=== PATIENT | male | born 1930 | race African-American/Black ===

== ENCOUNTER 2019-06-11 04:45 | Emergency (ER) | payer OTHER, BC ==
[~2019-06-11] VITALS: Ht 185.4 cm; Wt 88.9 kg
[~2019-06-11 04:45] MED LIST: ASPIRIN325 PO; CARDIZEM CD360 MG PO; GLIPIZIDE XL5 MG PO; HYDROCHLOROTH12.5 MG PO; LEVAQUIN 250 M250 MG PO; LIPITOR20 MG PO; TOPROL XL100 MG PO
[2019-06-11 05:57] VITALS: BP 188/84
== END 2019-06-11 05:58 | disposition home or self-care (01) ==
LOC: ER 04:45
DX: R41.0 Disorientation, unspecified (principal); I10 Essential (primary) hypertension

== ENCOUNTER 2020-03-11 23:22 | Inpatient (IN) | payer OTHER, BC ==
[~2020-03-11] VITALS: Ht 185.4 cm; Wt 87.0 kg
[~2020-03-11 23:22] MED LIST changes: +HYDROCHLOROTH12.5 M1 PO; -HYDROCHLOROTH12.5 MG PO
[2020-03-11 23:23] VITALS: BP 162/78
[2020-03-11] MEDS ORDERED: DESYREL150 MG PO (23:43)
[2020-03-11] MEDS ORDERED: COZAAR 25 MG TA25 M1 PO (23:44)
[2020-03-11] MEDS ORDERED: LATANOPROST 0.2.5 ML EA. EYE (23:45)
[2020-03-12 00:06] LABS: ABSOLUTE NEUTROPHILS 10.1 thou/uL (1.4-8.2); BASOPHILS 0.5 % (0.0-2.0); EOSINOPHILS 0.1 % (0.0-3.0); HEMATOCRIT 40.3 % (42.0-52.0); HEMOGLOBIN 12.5 gm/dL (14.0-18.0); LYMPHOCYTES 6.5 % (24.0-44.0); MCHC 31.1 g/dL (28.0-37.0); MCV 77.3 fL (80.0-100.0); MONOCYTES 6.3 % (1.0-8.0); PLATELET COUNT 286 thou/uL (150-400); POLYS 86.6 % (36.0-66.0); RBC 5.21 mil/uL (4.50-6.00); RDW 16.6 % (10.5-14.5); WBC 11.7 thou/uL (4.0-11.0)
[2020-03-12 00:10] LABS: ANION GAP 9 mmol/L (7-16); BUN 27 mg/dL (7-18); CALCIUM 9.1 mg/dL (8.5-10.1); CHLORIDE 102 mmol/L (98-107); CO2 31 mmol/L (21-32); CREATININE 2.1 mg/dL (0.7-1.3); GLUCOSE 235 mg/dL (74-106); POTASSIUM 3.5 mmol/L (3.5-5.1); SODIUM 142 mmol/L (136-145)
[2020-03-12 00:22] LABS: ALBUMIN 2.6 g/dL (3.4-5.0); DIRECT BILIRUBIN 0.2 mg/dL (<0.1-0.2); MAGNESIUM 2.3 mg/dL (1.8-2.4); SGOT 30 U/L (15-37); SGPT 20 U/L (30-65); TOTAL BILIRUBIN 0.6 mg/dL (0.2-1.0); TOTAL PROTEIN 7.7 g/dL (6.4-8.2); TROPONIN-I <0.06 ng/mL (<0.06)
[2020-03-12 04:08] LABS: HEMATOCRIT 37.8 % (42.0-52.0); HEMOGLOBIN 11.8 gm/dL (14.0-18.0); MCH 24.1 pg (26.0-34.0); MCHC 31.2 g/dL (28.0-37.0); MCV 77.4 fL (80.0-100.0); RBC 4.89 mil/uL (4.50-6.00); RDW 16.4 % (10.5-14.5); WBC 12.6 thou/uL (4.0-11.0)
[2020-03-12 04:23] LABS: ANION GAP 8 mmol/L (7-16); BUN 27 mg/dL (7-18); CHLORIDE 105 mmol/L (98-107); CHOLESTEROL 103 mg/dL (<200); CO2 30 mmol/L (21-32); CREATININE 2.1 mg/dL (0.7-1.3); GLUCOSE 184 mg/dL (74-106); HDL CHOLESTEROL 55 mg/dL (>40); LDL CHOLESTEROL 36 mg/dL (<100); SODIUM 143 mmol/L (136-145); TC:HDL 1.9 Ratio (Not establshd); TRIGLYCERIDE 60 mg/dL (<150); VLDL 12 mg/dL (<40)
[2020-03-12 04:26] LABS: POTASSIUM 3.6 mmol/L (3.5-5.1); SERUM ASSESSMENT Clear
--- NOTE | 2020-03-12 04:47 | NUR ---
TALKED WITH SUNG PFEIFFER, I NOTIFIED HER THAT I WAS UNABLE TO STRAIGHT CATH PT FOR U/A. PER SUNG OK TO LET PT VOID IN URINAL WHEN HE HAS URGE TO GO AND COLLECT SPECIMEN THAT WAY.
--- NOTE | 2020-03-12 06:47 | NUR ---
TW DAUGHTER SONAL, EXPLAINED TO DAUGHTER POSITIVE COVID TEST AND NEED FOR ISOLATION.
--- NOTE | 2020-03-12 08:29 | EKG ---
[facility] [place] [address] [place] [address] ELECTROCARDIOGRAM REPORT Name: MITZI DIAZ Room #: 170-11 ADM IN M.R.#: [id number] Admission: 03/12/20 Attend Phys: Julio Iqbal MD Discharge: Date of : 34 Report #: [id number] THIS REPORT FOR: cc: [facility] - Clinic physician unknown [facility] - Clinic physician unknown Ray Garcia MD [facility] THIS REPORT FOR: //name// [facility] ED Test Date: 2020-03-11 Test Time: 23:32:58 Pat Name: MITZI DIAZ Department: Room: 170 Gender: M Retail Department Supervisor: branden : [id number] Requested By: Maite Stevens Order Number: [id number] MD: Ray Garcia Measurements Intervals [place] Rate: 119 P: -41 ID: [id number] QRS: 32 QRSD: 79 T: 195 QT: 296 QTc: 417 Interpretive Statements Sinus tachycardia Frequent and consecutive atrial premature complexes Nonspecific ST segment abnormality Baseline wander in lead(s) V5 Compared to ECG 09/30/2015 20:36:32 Atrial premature complex(es) now present Electronically Signed On 03-12-2020 8:28:49 DISTRIBUTION SUPERINTENDENT by Ray Garcia [email or web address] <ELECTRONICALLY SIGNED> By: Ray Garcia MD, FACC 03/12/20 0828 31 31 Ray Garcia MD, FAC /EPI
--- NOTE | 2020-03-12 12:57 | NUR ---
SHIRT OPERATOR SPOKE WITH DAUGHTER SONAL DIAZ ([phone]) AND GAVE PT POC UPDATE. SHE VERBALIZED UNDERSTANDING. SHE WAS ALSO MADE AWARE THAT PT IS NOW UNDER DR WATKINS'S SERVICE. NO FURTHER CONCERNS/QUESTIONS BY FAMILY AT THIS TIME.
[2020-03-12 14:54] VITALS: BP 138/62
[2020-03-12 15:42] VITALS: BP 171/71
[2020-03-12 21:55] VITALS: BP 157/63
[2020-03-13] VITALS (7 sets, daily range): BP systolic 123–186; BP diastolic 54–100
[2020-03-13 01:06] LABS: GLYCOHEMOGLOBIN (HGB A1C) 6.5 % (4.8-5.6)
[2020-03-13 02:49] LABS: HEMOGLOBIN 10.2 gm/dL (14.0-18.0); MCH 23.5 pg (26.0-34.0); MCHC 30.8 g/dL (28.0-37.0); MCV 76.3 fL (80.0-100.0); PLATELET COUNT 248 thou/uL (150-400); RBC 4.33 mil/uL (4.50-6.00); RDW 16.1 % (10.5-14.5); WBC 24.5 thou/uL (4.0-11.0)
[2020-03-13 02:57] LABS: CALCIUM 8.8 mg/dL (8.5-10.1); CREATININE 2.1 mg/dL (0.7-1.3); POTASSIUM 3.2 mmol/L (3.5-5.1); TOTAL BILIRUBIN 0.5 mg/dL (0.2-1.0); TOTAL PROTEIN 6.5 g/dL (6.4-8.2)
[2020-03-13 02:58] LABS: FIBRINOGEN 555.5 mg/dL (210-360); INR 1.1; PROTIME 11.4 Seconds (9.3-11.4)
[2020-03-13 03:55] LABS: ANISOCYTOSIS 1+; HYPOCHROMASIA 1+; MICROCYTES 1+
[2020-03-13 03:56] LABS: PLATELET ESTIMATE NORMAL
--- NOTE | 2020-03-13 06:44 | NUR ---
Pt. very confused and restless at beginning of shift.He pulled his IV out , disconnected heart monitor and placed it in the trash can. Pt. frequently reoriented. Daughter called to get an update on pt. Consent obtained for convalescent plasma ,given to pt and tolerated well. New IV inserted on right FA.Bed alarm on for safety. Maintaining O2 sat in the upper 90's on 2L/NC though when pt. takes off cannula his O2 sat drops in the mid 80's. BUSINESS RECORDS MANAGER cough , no shortness of breath. MRSA swab sent. Incontinent of bladder then offered to use urinal this am and voided. Urine specimen sent to lab. Pharmacist called last night to inform me that remdesivir needs to be approved by Dr. Orona and none available last night till shipment comes today.
--- NOTE | 2020-03-13 16:17 | NUR ---
Case opened to follow for dc planning. Chart reviewed and case discussed with the care team. Pt is covid positive and in enhanced ISO. Butcher Assistant spoke with the pt's dtr/dpoa Tsering who lives with him. The pt has dementia/alzh but is indep with gait and some adl's. He requires supervision with adl's, setup for meds,meals and bathing, and assist with IADl's. Tsering reports that she lives with him and is able to leave him alone from 2pm to 11pm during her work shift. He has a good routine at home. He has dme at home but refuses to use it (cane,walker, bath bench). They have a total of 7 steps into the house and he is able to stay on the main level. The 7 steps include a landing usp up and a handrail. His pcp is Dr. Jadiel Stern. He does not have any HH or SNF history. Pt's dtr is open to HH f/u at al and is planning to have her dtr (his gdtr) come and stay with him once he comes back home so he will not be alone. Pt's dtr notes that she is recovering from Covid as well and was at [facility] on 03/01. He started having symptoms 03/02/20 and has continued to have weakness and poor appetite. She can be reached on her cell or home number. Cm role introduced and support provided. The pt is currently on 2L NC oxygen and confused. He has recieved cov plasma today and has been sitting up in a chair. Will follow along for HH referral and possible home o2 at al. The pt's dtr has been touching base with the unit staff and spoke with the pt earlier this morning.
--- NOTE | 2020-03-13 17:25 | NUR ---
ASSUMED PATIENT CARE AT 0700. ALERT TO SELF. PATIENT STRATED PULLING EVERTHING OFF AT 1600. DR JUNE MORELAND. WILL GIVEN HALDOL AFTER DINER. PATIENT TOLERATED ON 2L/NC. SLOWLY TOWARDS POC GOALS.
[2020-03-13 21:29] LABS: URINE BILIRUBIN NEGATIVE (Negative); URINE BLOOD TRACE (Negative); URINE CLARITY CLOUDY; URINE COLOR YELLOW; URINE GLUCOSE-RANDOM* NEGATIVE (Negative); URINE KETONES NEGATIVE (Negative); URINE LEUKOCYTES NEGATIVE (Negative); URINE NITRITE NEGATIVE (Negative); URINE PROTEIN (DIPSTICK) 2+ (Negative); URINE SPECIFIC GRAVITY >= 1.030 (1.005-1.035); URINE UROBILINOGEN 0.2 E.U./dl (0.2-1.0)
[2020-03-13 21:44] LABS: CELLULAR CASTS 0-3 Few /LPF (None Seen); COARSE GRANULAR CASTS 0-3 Few /LPF (None Seen); CRYSTALS None Seen /LPF (None Seen); HYALINE CASTS 0-3 Few /LPF (None Seen); MUCUS 4-6 Moderate strn/LPF (None Seen); SQUAMOUS 0-3 Few /LPF (0-3); URINE RBC 0-2 Rare /HPF (0-2); URINE WBC 0-5 Rare /HPF (0-5)
--- NOTE | 2020-03-14 03:00 | NUR ---
Oxygen off at beginning of shift with O2 sat in the 80's. O2 titrated up to 5L to keep his O2 sat greater than 90%. He is wheezy and tachypneic. Dr. Stern notified and daughter Tsering updated.
[2020-03-14 04:53] VITALS: BP 124/60
[2020-03-14 04:55] LABS: HEMATOCRIT 35.2 % (42.0-52.0); MCH 23.9 pg (26.0-34.0); MCHC 31.2 g/dL (28.0-37.0); MCV 76.4 fL (80.0-100.0); RDW 16.9 % (10.5-14.5); WBC 31.1 thou/uL (4.0-11.0)
[2020-03-14 05:05] LABS: SGOT 98 U/L (15-37); SGPT 54 U/L (30-65)
[2020-03-14 05:12] LABS: PLATELET COUNT 330 thou/uL (150-400)
[2020-03-14 05:28] LABS: BE(vivo) -4.6 mmol/L (-2 to +3); HCO3 25.5 mmol/L (22.0-26.0); PO2 81.4 mmHg (80.0-100.0)
[2020-03-14 05:29] LABS: PCO2 75.1 mmHg (35.0-45.0); pH 7.148 (7.360-7.450)
[2020-03-14 05:37] LABS: CALCIUM 8.5 mg/dL (8.5-10.1); CREATININE 2.1 mg/dL (0.7-1.3); POTASSIUM 4.1 mmol/L (3.5-5.1)
[2020-03-14 06:42] LABS: ABSOLUTE NEUTROPHILS 30.8 thou/uL (1.4-8.2)
[2020-03-14 06:43] LABS: ANISOCYTOSIS 1+; BURR CELLS 1+; HYPOCHROMASIA 1+; MICROCYTES 1+; PLATELET ESTIMATE NORMAL; POIKILOCYTOSIS 1+; SCHISTOCYTES 1+
--- NOTE | 2020-03-14 07:23 | NUR ---
Around 0500 , pt. cleaned for incontinence. He didn't respond as much and lethargic,barely opened eyes and went right back to sleep. No respond to sternal rub , occasional movement of hands. DIRECTOR OF PARKS AND RECREATION activated. ABG results called to Dr. Stern. IV fluids dc'd . External catheter placed. Daughter Tsering updated this am.
[2020-03-14 07:43] VITALS: BP 144/73
[2020-03-14 08:24] LABS: BE(vivo) -2.9 mmol/L (-2 to +3); HCO3 25.7 mmol/L (22.0-26.0); pH 7.222 (7.360-7.450); sO2 92.1 % (92.0-98.0)
[2020-03-14 11:17] VITALS: BP 138/73
--- NOTE | 2020-03-14 14:56 | NUR ---
ASSUMED CARE OF PT AT 0700. PT ON BIPAP. LETHARGIC. RESPONDS TO STIMULI. ABG SHOWING IMPROVEMENT. WCM.
--- NOTE | 2020-03-14 15:16 | NUR ---
SW reviewed chart and spoke with nursing. Pt remains in Enhanced Isolation due to COVID-19. Pt is afebrile and on 5L of O2. Pt is on IV abx and IV steroids. Pt is completing course of Remdesivir. Plan is for pt to return home with Dannielle when medically stable. YANA is following to assist as needed with discharge planning.
[2020-03-14 15:44] VITALS: BP 150/68
[2020-03-14 19:27] VITALS: BP 112/71
[2020-03-15 04:23] VITALS: BP 158/85
[2020-03-15 06:57] LABS: CALCIUM 8.7 mg/dL (8.5-10.1); CREATININE 2.6 mg/dL (0.7-1.3); POTASSIUM 3.8 mmol/L (3.5-5.1); TOTAL BILIRUBIN 0.3 mg/dL (0.2-1.0); TOTAL PROTEIN 6.9 g/dL (6.4-8.2)
[2020-03-15 06:58] LABS: SGOT 73 U/L (15-37); SGPT 54 U/L (30-65)
[2020-03-15 07:20] VITALS: BP 151/88
[2020-03-15 11:19] VITALS: BP 163/70
--- NOTE | 2020-03-15 14:46 | NUR ---
SW reviewed chart and spoke with nursing and attending physician. Pt remains in Enhanced Isolation due to COVID-19. Pt is afebrile and requiring bipap support. Pt is on IV abx and IV steroids. Completing course of Remdesivir. Pt will need therapy evals ordered when able to participate. SW is following to assist as needed with discharge planning.
[2020-03-15 15:26] VITALS: BP 133/57
--- NOTE | 2020-03-15 18:43 | NUR ---
RN ASSUMED PT'S CARE AT 0700AM, PT KNOWS HIS NAME ,BUT PT IS CONFUSED AND IMPULSIVE AT TIME, PT CANNOT FOLLOW COMMANDS, PT DISCONTINUED HIS BIPAP AT 4 TIMES, PT HAS STARTED BOTH WRIST RESTRAINTS AT 1430PM PER ORDER, PT IS CONTINUING BAPAP WITH O2 50%, PT CAN EAT FOR 15MIN WITH O2 15L/MIN/NC, RN WILL REPORT TO NEXT SHIFT TO KEEP EYE ON PT.
[2020-03-15 22:24] VITALS: BP 187/82
[2020-03-16 05:00] VITALS: BP 144/73
[2020-03-16 05:54] LABS: BASOPHILS 0.1 % (0.0-2.0); HEMATOCRIT 34.5 % (42.0-52.0); HEMOGLOBIN 10.9 gm/dL (14.0-18.0); MCH 23.9 pg (26.0-34.0); MCHC 31.5 g/dL (28.0-37.0); PLATELET COUNT 301 thou/uL (150-400); POLYS 94.9 % (36.0-66.0); RBC 4.54 mil/uL (4.50-6.00); RDW 16.9 % (10.5-14.5)
[2020-03-16 06:50] LABS: SGOT 79 U/L (15-37); SGPT 82 U/L (30-65)
[2020-03-16 06:59] LABS: ALBUMIN 2.1 g/dL (3.4-5.0); CALCIUM 8.7 mg/dL (8.5-10.1); CREATININE 2.3 mg/dL (0.7-1.3); POTASSIUM 3.5 mmol/L (3.5-5.1); TOTAL BILIRUBIN 0.3 mg/dL (0.2-1.0); TOTAL PROTEIN 6.3 g/dL (6.4-8.2)
[2020-03-16 07:36] VITALS: BP 180/85
[2020-03-16 11:52] VITALS: BP 190/95
--- NOTE | 2020-03-16 15:38 | NUR ---
SW reviewed chart and spoke with nursing and attending physician. Pt remains in Enhanced Isolation due to COVID-19. Pt is afebrile and requiring bipap support. Pt is on IV abx and IV steroids. Pt is completing course of Remdesivir. Pt is in restraints. Therapy to evaluate pt when he is able to pariticipate. No weekend discharge planned. YANA is following to assist as needed with discharge planning.
[2020-03-16 16:13] VITALS: BP 203/110
--- NOTE | 2020-03-16 19:32 | NUR ---
CONT ON RESTRAINTS. HAS BEEN NOTED ATTEMPTING TO GET OUT OF BED. REDIRECTED EASILY. INCONT OF BOWEL AND BLADDER.
[2020-03-16 20:26] VITALS: BP 198/98
[2020-03-17 04:28] VITALS: BP 170/95
--- NOTE | 2020-03-17 06:00 | NUR ---
Pt. rested quietly at intervals during the night when checked on during frequent rounds. Continues on bilateral wrist restraints as he tends to pull at his bipap. He is alert, but confused. Incontinent of urine and susu care given throughout the shift. Bed alarm is on.
[2020-03-17 07:51] VITALS: BP 215/83
[2020-03-17 08:24] LABS: SGOT 54 U/L (15-37); SGPT 68 U/L (30-65)
[2020-03-17 16:00] VITALS: BP 125/68
--- NOTE | 2020-03-17 19:41 | NUR ---
PATIENT ALERT ORIENTED TO SELF. CONT ON BIPAP MOST OF THE DAY. OFF BIPAP WITH MEALS. ONLY TOLERATED NC 1 HR AT A TIME TODAY OPPOSE TO A FEW HOURS YESTERDAY. WHILE ON BIPAP PATIENT SATS STAYED ABOVE 90%. CONT TO ATTEMPT TO SLIDE OFF THE BED. WILL CONT WIT PLAN OF CARE.
[2020-03-17 20:31] VITALS: BP 178/79
[2020-03-18 04:09] LABS: BE(vivo) 4.2 mmol/L (-2 to +3); HCO3 31.5 mmol/L (22.0-26.0); PCO2 59.1 mmHg (35.0-45.0); PO2 88.9 mmHg (80.0-100.0); pH 7.344 (7.360-7.450); sO2 96.1 % (92.0-98.0)
[2020-03-18 04:28] VITALS: BP 196/63
[2020-03-18 05:23] LABS: ABSOLUTE NEUTROPHILS 13.2 thou/uL (1.4-8.2); BASOPHILS 0.1 % (0.0-2.0); HEMATOCRIT 41.9 % (42.0-52.0); LYMPHOCYTES 2.7 % (24.0-44.0); MCH 23.9 pg (26.0-34.0); MCHC 30.9 g/dL (28.0-37.0); MCV 77.3 fL (80.0-100.0); MONOCYTES 5.1 % (1.0-8.0); POLYS 92.1 % (36.0-66.0); RBC 5.42 mil/uL (4.50-6.00); RDW 17.1 % (10.5-14.5); WBC 14.3 thou/uL (4.0-11.0)
[2020-03-18 05:32] LABS: HEMOGLOBIN 12.9 gm/dL (14.0-18.0); PLATELET COUNT 198 thou/uL (150-400)
[2020-03-18 05:52] LABS: ALBUMIN 2.1 g/dL (3.4-5.0); CALCIUM 9.2 mg/dL (8.5-10.1); TOTAL BILIRUBIN 0.4 mg/dL (0.2-1.0); TOTAL PROTEIN 7.1 g/dL (6.4-8.2)
[2020-03-18 05:58] LABS: POTASSIUM 3.8 mmol/L (3.5-5.1)
[2020-03-18 08:41] VITALS: BP 177/100
[2020-03-18 11:50] VITALS: BP 178/73
[2020-03-18 15:34] VITALS: BP 165/81
--- NOTE | 2020-03-18 19:04 | NUR ---
PATIENT SIGNIFCANTLY IMPROVED THIS PM. HE STAYED ON NC AT 6L AND OXYGEN SAT HAS REMAINED ABOVE 90%. TALKED WITH FAMILY ON FACETIME. TIRED MOSTLY. WILL CONT WITH PLAN OF CARE.
[2020-03-18 19:33] VITALS: BP 175/88
[2020-03-19 05:39] LABS: HEMATOCRIT 40.1 % (42.0-52.0); HEMOGLOBIN 12.5 gm/dL (14.0-18.0); MCH 23.6 pg (26.0-34.0); MCV 76.1 fL (80.0-100.0); RBC 5.28 mil/uL (4.50-6.00); RDW 16.9 % (10.5-14.5); WBC 15.3 thou/uL (4.0-11.0)
[2020-03-19 05:59] LABS: CALCIUM 9.3 mg/dL (8.5-10.1); CREATININE 2.4 mg/dL (0.7-1.3); POTASSIUM 3.1 mmol/L (3.5-5.1)
--- NOTE | 2020-03-19 07:42 | NUR ---
PT STATUS NO CHANGES OVERNIGHT. EXTERNAL CATH IN PLACE WITH GOOD RESULTS. PT OFF BIPAP AND ON 6L NC. TELE SHOWS AFIB. RESTRAINTS IN PLACE DUE TO PT ATTEMPTS TO REMOVE IV'S AND TELE. PT IS A TOTALCARE AND IS VERY SLOW AT EATING, BUT WILL EAT COPIOUS AMOUNTS.
[2020-03-19 08:00] VITALS: BP 149/63
--- NOTE | 2020-03-19 09:58 | NUR ---
Nutrition: pt seen for LOS. Admit with PNA, COVID +. ST followed for modified diet, pureed, honey thick liquids. Total care/feeder. Eats very slow but eats very well per nsg. Enjoyed ensure pudding this am. Off bipap for meals. BG 180-280 with hx DM and steroid need. Will add carb controlled to diet order. Current weight up 7# from admit. Consider low nutrition risk.
[2020-03-19 12:03] VITALS: BP 148/74
[2020-03-19 14:48] VITALS: BP 149/68
--- NOTE | 2020-03-19 15:07 | NUR ---
YANA reviewed chart and spoke with nursing and attending physician. Pt remains in Enhanced Isolation due to COVID-19. Pt is afebrile and on 5L of O2. Pt is on IV abx and IV steroids. Pt is in restraints. ST evaluated pt. Recommendation made for pt to be on a pureed diet and honey thickened liquids. PT/OT evals are pending. YANA spoke with pt's dtr, Tsering and crystalr, via phone. Update provided and discussion regarding regarding discharge needs. Pt's family is adamant about pt returning home with services. Pt's family does not want pt to go to a nursing facilty. Options provided for HH agencies. No preference voiced. [facility] Notified intake of new referral. Pt's family request update from nursing. YANA requested nursing to follow up with family. YANA is following to assist as needed with discharge planning.
[2020-03-19 20:31] VITALS: BP 144/58
[2020-03-20] VITALS (7 sets, daily range): BP systolic 117–155; BP diastolic 39–61
--- NOTE | 2020-03-20 07:55 | NUR ---
ASSUMED CARE AT 1900. PT LETHARGIC, WOULD SQUEEZE FINGERS, OCCASIONALLY NOD. TOOK A FEW SPOONFULS OF THICKENED LIQUIDS, HAD TO PROMPT TO SWALLOW; WHEN TRIED TO GIVE CRUSHED MEDS IN APPLESAUCE, PT JUST KEPT HOLDING IT IN HIS MOUTH AND WOULD NOT SWALLOW. TRIED FOR SEVERAL MINUTES TO ENCOURAGE SWALLOWING BUT STILL UNSUCCESSFUL; SCRAPED ALL APPLESAUCE/MEDS OUT OF MOUTH AND COMPLETED EXTENSIVE ORAL CARE. PT HAD CRACKLES IN ALL QUADS OF LUNGS, BUT MORE DIMINISHED ON LEFT SIDE; VERY WEAK COUGH; PLACED ON BIPAP AT MIDNIGHT D/T SATS BEING 85-90% ON 10L; CHANGED PULSE OX SEVERAL TIMES, BUT STILL HAD A GOOD PLETH, O2 STILL FLUCTUATED 88-93% ON BIPAP. CONTINUED TO BE VERY LETHARGIC OVERNIGHT, WOULD RESPOND TO PAINFUL STIMULI. RESTRAINTS OFF SINCE MIDNIGHT. NO OTHER CONCERNS, SHIFT REPORT GIVEN 0700.
[2020-03-20 08:09] LABS: CALCIUM 9.5 mg/dL (8.5-10.1)
[2020-03-20 08:26] LABS: POTASSIUM 2.8 mmol/L (3.5-5.1)
[2020-03-20 08:36] LABS: HEMATOCRIT 37.5 % (42.0-52.0); HEMOGLOBIN 11.4 gm/dL (14.0-18.0); MCH 23.4 pg (26.0-34.0); MCHC 30.5 g/dL (28.0-37.0); MCV 76.7 fL (80.0-100.0); RBC 4.89 mil/uL (4.50-6.00); WBC 20.9 thou/uL (4.0-11.0)
--- NOTE | 2020-03-20 15:40 | NUR ---
YANA reviewed chart and spoke with nursing. Pt remains in Enhanced Isolation due to COVID-19. Pt is afebrile and on 5L of O2. Pt is on IV abx and IV steroids. CT of the head is ordered today. Pt is out of restraints. Therapy to evaluate pt for discharge needs. Pt's family is wanting to have pt return home with services. YANA is following to assist as needed with discharge planning.
[2020-03-20 20:40] LABS: BE(vivo) 7.9 mmol/L (-2 to +3); HCO3 33.4 mmol/L (22.0-26.0); PCO2 50.6 mmHg (35.0-45.0); PO2 65.6 mmHg (80.0-100.0); pH 7.438 (7.360-7.450); sO2 93.3 % (92.0-98.0)
[2020-03-21] VITALS (63 sets, daily range): BP systolic 83–195; BP diastolic 36–89
--- NOTE | 2020-03-21 00:22 | NUR ---
ASSUMED CARE AT 1900. PT CONTINUED TO BE LETHARGIC, ONLY RESPONDING TO PAINFUL STIMULI. ON BIPAP 90% FIO2, COARSE LUNG SOUNDS. PLACED A COUDET RENTERIA CATHETER, DIFFICULT TO INSERT PAST PROSTATE, DID NOT START DRAINING URINE UNTIL INSERTED ALL THE WAY TO HUB; DR. THAO WAS ABLE TO TUG CATHETER BACK A COUPLE OF INCHES; A FEW CLOTS CAME OUT AND URINE WAS DARK YELLOW. RIGHT FA IV INFILTRATED, 2+ EDEMA IN R FA; REMOVED IV AND PLACED NEW 22g TO LEFT FA, IVF RESUMED. REPORT CALLED TO NICOLÁS IN ICU ABOUT 2315, TRANSFERRED BY BED W/BIPAP TO ROOM 239.
--- NOTE | 2020-03-21 01:35 | NUR ---
This RN recieved report from CYNDEE Skaggs on 3W. Patient transferred to ICU room 239 at 2345. Patient on 90% Bipap with settings 14/8. Patient satting in the 90's. Patient extremely lethargic and hard to aruose. Sternal rubbing gets patient to open eyes briefly. Pt not following commands or attempting to speak. Pupils equal round reactive to light, patient with withdrawal from painful stimuli. Pt started on levophed on the unit and fluids. Will continue to monitor.
[2020-03-21 05:36] LABS: BE(vivo) 4.5 mmol/L (-2 to +3); HCO3 30.4 mmol/L (22.0-26.0); PCO2 50.4 mmHg (35.0-45.0); pH 7.398 (7.360-7.450); sO2 87.5 % (92.0-98.0)
[2020-03-21 05:37] LABS: PO2 53.9 mmHg (80.0-100.0)
--- NOTE | 2020-03-21 05:40 | NUR ---
This RN called Dr. Ojeda to discuss patients poor urine output. Discussed medications and orders for 1L of NS over hours was ordered. This RN received critical ABGs and discussed these with Rusty. No vent setting changes for now. Will continue to monitor.
[2020-03-21 05:59] LABS: HEMATOCRIT 37.1 % (42.0-52.0); HEMOGLOBIN 11.4 gm/dL (14.0-18.0); MCH 23.4 pg (26.0-34.0); MCHC 30.8 g/dL (28.0-37.0); PLATELET COUNT 218 thou/uL (150-400); RBC 4.89 mil/uL (4.50-6.00); RDW 17.1 % (10.5-14.5); WBC 25.1 thou/uL (4.0-11.0)
[2020-03-21 06:10] LABS: ALBUMIN 2.1 g/dL (3.4-5.0); CALCIUM 9.1 mg/dL (8.5-10.1); POTASSIUM 3.4 mmol/L (3.5-5.1); TOTAL BILIRUBIN 0.4 mg/dL (0.2-1.0); TOTAL PROTEIN 6.2 g/dL (6.4-8.2)
[2020-03-21 06:12] LABS: CREATININE 4.7 mg/dL (0.7-1.3)
[2020-03-21 06:20] LABS: FIBRINOGEN 273.2 mg/dL (210-360); INR 1.1; PROTIME 11.3 Seconds (9.3-11.4)
[2020-03-21 13:48] LABS: ABSOLUTE NEUTROPHILS 24.6 thou/uL (1.4-8.2)
[2020-03-21 13:49] LABS: ANISOCYTOSIS 1+; BURR CELLS FEW; OVALOCYTES FEW; POIKILOCYTOSIS 1+
--- NOTE | 2020-03-21 16:02 | NUR ---
VAT CONSULTED FOR CL. RIGHT, 6 FR TL JACC PLACED IJ X1. 25CM INSERTED TO 5CM EXTERNAL. LEFT IJ ASSESSED WITH US AND DEEMED TOO SMALL FOR CANNULATION. CXR ORDERED STAT. PT TOLERATED WELL.
--- NOTE | 2020-03-21 16:40 | NUR ---
chart review. cont need use of bipap. from home. covid +. no anticipated dc over the weekend. will cont following as needed for dc needs.
--- NOTE | 2020-03-21 17:36 | NUR ---
CXR CONFIRMED CVAD AT [facility]. RELEASED FOR IMMEDIATE USE PER PROTOCOL TO OZZY COTTER
[2020-03-21 20:28] LABS: BE(vivo) 0.6 mmol/L (-2 to +3); HCO3 26.8 mmol/L (22.0-26.0); PO2 77.1 mmHg (80.0-100.0); pH 7.347 (7.360-7.450); sO2 94.6 % (92.0-98.0)
[2020-03-22] VITALS (63 sets, daily range): BP systolic 82–137; BP diastolic 42–72
[2020-03-22 04:20] LABS: BE(vivo) 0.7 mmol/L (-2 to +3); HCO3 25.3 mmol/L (22.0-26.0); PCO2 40.4 mmHg (35.0-45.0); PO2 78.2 mmHg (80.0-100.0); pH 7.414 (7.360-7.450); sO2 95.7 % (92.0-98.0)
[2020-03-22 08:21] LABS: HEMATOCRIT 32.8 % (42.0-52.0); HEMOGLOBIN 10.2 gm/dL (14.0-18.0); MCH 23.7 pg (26.0-34.0); MCHC 31.1 g/dL (28.0-37.0); MCV 76.3 fL (80.0-100.0); RBC 4.29 mil/uL (4.50-6.00); RDW 16.8 % (10.5-14.5); WBC 31.3 thou/uL (4.0-11.0)
[2020-03-22 08:36] LABS: CALCIUM 8.6 mg/dL (8.5-10.1); CREATININE 4.7 mg/dL (0.7-1.3); POTASSIUM 3.4 mmol/L (3.5-5.1)
--- NOTE | 2020-03-22 09:41 | NUR ---
CONTINOUS PULSE OX HARD WIRE MALFUNCTION. RN CALLED RT AND REQUESTED NON HARD WIRED CONINOUS PULSE OX. RT STATED HE WILL TRY AND FIND A CONTINOUS PULSE OX MACHINE AND WILL LET ME KNOW.
--- NOTE | 2020-03-22 10:50 | NUR ---
PT'S GRANDDAUGHTER KEVAN AND DAUGHTER SONAL CALLED FOR A PT UPDATE.RN ANSWERED QUESTIONS AND GAVE PT UPDATE.
--- NOTE | 2020-03-22 13:31 | NUR ---
1139- PT HAS HAD VERY LOW URINE OUTPUT FROM SHIFT CHANGE UNTIL NOW. UO HAS BEEN DECLINING FOR A FEW DAYS AND RENAL LAB VALUES HAVE BEEN INCREASING. RN CALLED DR WATKINS AND MADE HIM AWARE. NEW ORDERS FOR IV LASIX GIVEN WELL CONSULT FOR RENAL. RENAL DOCTOR ADELSO ROUNDED ON PT. NO NEW ORDERS FROM RENAL DOCTOR GIVEN AT THIS TIME.
[2020-03-23] VITALS (41 sets, daily range): BP systolic 88–130; BP diastolic 42–62
--- NOTE | 2020-03-23 06:00 | NUR ---
REMAINS INBTUBATED AND SEDATED WITH PROPOFOL. SINUS RHYTHM. 400 CC UO THIS SHIFT. NOT PROGRESSING TOWARD GOALS. WILL CONT TO MONITOR
[2020-03-23 06:37] LABS: HEMOGLOBIN 9.8 gm/dL (14.0-18.0); MCH 23.4 pg (26.0-34.0); MCHC 30.7 g/dL (28.0-37.0); MCV 76.1 fL (80.0-100.0); RBC 4.21 mil/uL (4.50-6.00); RDW 16.9 % (10.5-14.5); WBC 36.2 thou/uL (4.0-11.0)
[2020-03-23 06:55] LABS: CALCIUM 8.5 mg/dL (8.5-10.1); CREATININE 4.8 mg/dL (0.7-1.3); POTASSIUM 3.4 mmol/L (3.5-5.1)
--- NOTE | 2020-03-23 19:20 | NUR ---
PT REMAINS INTUBATED/SEDATED FOR VENT MANAGEMENT. POOR URINE OUTPUT, RENAL AWARE. PATIENT DOES NOT FOLLOW COMMANDS BUT GRIMACES TO STIMULI. POSITIVE COUGH AND GAG. CREATININE TRENDING UP. DR. WATKINS UPDATED FAMILY ON PATIENT STATUS AND POOR PROGNOSIS. REMAINS FULL CODE AND AGGRESSIVE CARE AT THIS TIME.
[2020-03-24] VITALS (54 sets, daily range): BP systolic 83–162; BP diastolic 39–73
[2020-03-24 05:59] LABS: HEMATOCRIT 30.6 % (42.0-52.0); HEMOGLOBIN 9.5 gm/dL (14.0-18.0); MCH 23.2 pg (26.0-34.0); MCHC 30.9 g/dL (28.0-37.0); MCV 75.2 fL (80.0-100.0); RBC 4.08 mil/uL (4.50-6.00); RDW 17.2 % (10.5-14.5); WBC 36.2 thou/uL (4.0-11.0)
[2020-03-24 06:09] LABS: CALCIUM 8.6 mg/dL (8.5-10.1); CREATININE 4.7 mg/dL (0.7-1.3); POTASSIUM 3.1 mmol/L (3.5-5.1)
--- NOTE | 2020-03-24 10:00 | NUR ---
ASSUMMED CARE AT 0700 FROM THE NIGHT NURSE, LUIS. PATIENT IS NOTED TO BE HYPOTENSIVE, LEVOPHED STARTED. BP ELEVATED WITH AGITATION OF ORAL CARE AND REPOSITIONING.
[2020-03-25] VITALS (14 sets, daily range): BP systolic 110–155; BP diastolic 48–73
[2020-03-25 04:32] LABS: HEMATOCRIT 31.7 % (42.0-52.0); MCH 23.7 pg (26.0-34.0); MCHC 31.6 g/dL (28.0-37.0); MCV 74.8 fL (80.0-100.0); RBC 4.24 mil/uL (4.50-6.00); RDW 17.3 % (10.5-14.5); WBC 37.2 thou/uL (4.0-11.0)
[2020-03-25 04:36] LABS: CALCIUM 8.6 mg/dL (8.5-10.1); CREATININE 5.3 mg/dL (0.7-1.3)
[2020-03-25 04:36] LABS: HCO3 21.4 mmol/L (22.0-26.0); PO2 67.5 mmHg (80.0-100.0); sO2 91.4 % (92.0-98.0)
[2020-03-25 04:37] LABS: pH 7.295 (7.360-7.450)
[2020-03-25 04:41] LABS: POTASSIUM 4.1 mmol/L (3.5-5.1)
--- NOTE | 2020-03-25 06:52 | NUR ---
VSS. BLOOD PRESSURE MAINTAINED WITH LEVO GTT. MAP >60. HEART RATE VARIES FROM 80s to 110s. HAD BM THIS SHIFT. WOUND PRESENT ON COCCYX; CREAM APPLIED. MINIMAL URINE OUTPUT; 250 CC URINE THIS SHIFT. LARGE AMOUNT OF THICK MAGALLANES SPUTUM INLINE. MINIMAL OUTPUT FROM OG TUBE WITH LIS. BLOOD GLUCOSE STABLE; REDUCED SSI SCALE. REQUIRING FIO2 OF 100%; SATS > 92%. PT PROGRESSING VERY SLOWLY TOWARDS GOALS IN PLAN OF CARE.
--- NOTE | 2020-03-25 10:24 | EKG ---
[facility] [place] [address] [place] [address] ELECTROCARDIOGRAM REPORT Name: MITZI DIAZ Room #: 239-P ADM IN M.R.#: [id number] Admission: 03/12/20 Attend Phys: Jadiel Stern MD Discharge: Date of : 34 Report #: [id number] THIS REPORT FOR: cc: Jadiel Stern MD, Neal A. MD Lammoglia, Francisco J. MD ~ THIS REPORT FOR: //name// [facility] Test Date: 2020-03-25 Test Time: 08:21:24 Pat Name: MITZI DIAZ Department: Room: 239 P Gender: M Open Developer Operator: SUE : [id number] Requested By: Don Ojeda Order Number: [id number] MD: Demetrio Tipton Measurements Intervals [place] Rate: 87 P: NM: QRS: 53 QRSD: 83 T: 18 QT: 360 QTc: 433 Interpretive Statements Sinus rhythm with frequent PACs Early transition Nonspecific ST-T wave change Compared to ECG 03/11/2020 23:32:58 Sinus tachycardia no longer present Electronically Signed On 03-25-2020 10:23:56 TANK TERMINAL GAUGER by Demetrio Tipton [email or web address] <ELECTRONICALLY SIGNED> By: Demetrio Tipton MD 03/25/20 1023 0 0 Demetrio Tipton MD /EPI
--- NOTE | 2020-03-25 16:45 | NUR ---
PT WAS SEEN TODAY BY // PT'S CODE STATUS CHANGED FROM FULLD TO NO CODE TODAY. PT WAS ALSO VISITED BY TWO FAMILY MEMBERS. NO CHANGES TO PT'S GTT REGIMEN, PT TOLERATING CURRENT SEDATION LEVEL WELL AND IS EASILY AROUSABLE. EKG WAS PERFORMED ON PT UPON NEW FINDING OF AFIB, CARDIOLOGY CONSULT WAS PLACED BUT WAS CANCELED BY PENDING PT PLAN OF CARE CHANGE. PT NO PROGRESSING TOWARDS DISCHARGE AT THIS TIME. TO SPEAK WITH FAMILY MEMBERS TOMORROW MORNING TO DISCUSS POSSIBILITY OF TRANSITIONING TO COMFORT CARE.
[2020-03-26] VITALS (46 sets, daily range): BP systolic 99–150; BP diastolic 44–104
--- NOTE | 2020-03-26 | NUR ---
LEVOPHED GTT TITRATED OFF. SBOP 124/80
--- NOTE | 2020-03-26 03:30 | NUR ---
PROPOFOL GTT TITRATED OFF. PT FOLLOWS NO COMMANDS AND NO INTERFERENCE WITH DEVICES.
[2020-03-26 04:53] LABS: BE(vivo) -7.9 mmol/L (-2 to +3); HCO3 17.6 mmol/L (22.0-26.0); pH 7.308 (7.360-7.450); sO2 94.9 % (92.0-98.0)
[2020-03-26 05:59] LABS: HEMATOCRIT 30.6 % (42.0-52.0); HEMOGLOBIN 9.8 gm/dL (14.0-18.0); MCH 23.8 pg (26.0-34.0); MCHC 31.9 g/dL (28.0-37.0); MCV 74.6 fL (80.0-100.0); RBC 4.1 mil/uL (4.50-6.00); RDW 17.4 % (10.5-14.5); WBC 30.7 thou/uL (4.0-11.0)
--- NOTE | 2020-03-26 06:00 | NUR ---
VSS REMAINS IN AFIB RATE 92. LEVOPHED AND PROPOFOL GTTS TITRATED OFF. 200 CC UO THIS SHIFT. REMAINS A DNR.FAMILY MAY CONSIDER COMFORT CARE TODAY. NOT PROGRESSING TOWARD GOALS. WILL CONT TO MONITOR
[2020-03-26 06:16] LABS: ALBUMIN 1.5 g/dL (3.4-5.0); CALCIUM 8.2 mg/dL (8.5-10.1); CREATININE 5.7 mg/dL (0.7-1.3); PHOSPHORUS 7.4 mg/dL (2.5-4.9); POTASSIUM 4.3 mmol/L (3.5-5.1)
--- NOTE | 2020-03-26 10:06 | NUR ---
cm received voice message from daughter mary asking to speak with case manages. cm left message requesting call back from mary. beni remains on vent, nutritional support. per MD's notes possible will work towards comfort care?. will cont following as needed for dc needs.
--- NOTE | 2020-03-26 10:33 | NUR ---
Nutrition: pt tx to ICU, + COVID. Intubated/NPO x 5 days. No response off sedation. Nsg reports likely comfort care plans and also per chart review. If tube feeds are started, based on current labs, REC Nepro at 15 mL/hr for now.
--- NOTE | 2020-03-26 10:34 | NUR ---
NO SIGNIFICANT CHANGES OVERNIGHT, PT HAS BEEN TAKEN OFF OF PROPOFOL WELL LEVOPHED. PROPOFOL TAKEN OFF AT 03/25 AT 2000, RESTRAINTS REMOVED AT 03/26 AT 0000. PT WAS SEEN MOVING ARM PURPOSEFULLY TOWARDS THE FACE TO TOGGLE THE ET TUBE BUT PT WAS VERY WEAK AND WAS UNABLE TO MOVE ARM TO THAT EXTENT. WAS SEEN THIS MORNING AND STATED THAT FAMILY MEMBER WOULD COME AND SEE THE PATIENT AFTER 1000. RN WAS ALSO TOLD BY , AFTER THE VIEW, PT'S FAMILY WOULD DECIDE COMFORT CARE STATUS. RN REPORTED THIS TO THE RECEIVING RN OTTONIEL. RN SIGNGING OFF NOW
--- NOTE | 2020-03-26 12:08 | NUR ---
SPOKE WITH DR. EDUARDO TO CLARIFY PLAN OF CARE. OK'D THROUGH ADMIN TO ALLOW PT'S DAUGHTER, SONAL AND GRANDDAUGHTER, KEVAN, TO VISIT PT THROUGH THE WINDOWED DOOR. FAMILY VERBALIZED READINESS TO EXTUBATE, BUT DID NOT WANT TO STAY THROUGH THE PROCEDURE. SONAL AND KEVAN ASKED US TO CALL TO PROVIDE UPDATE ON PT STATUS. OBTAINED INFORMATION REGARDING CHOICE OF HOME. REASSURANCES AND EMOTIONAL SUPPORT PROVIDED. PRAYED WITH FAMILY PRIOR TO THEIR DEPARTURE.
--- NOTE | 2020-03-26 12:19 | NUR ---
@ 1215, PT EXTUBATED AND PLACED ON O2 2L/MIN VIA NC. MORPHINE GIVEN FOR COMFORT.
--- NOTE | 2020-03-26 14:34 | NUR ---
PT AWAKENS TO VOICE AND IS ABLE TO STATE HIS NAME AND SHAKE HEAD "NO" WHEN ASKED ABOUT PAIN. PT ORIENTED TO TIME, PLACE AND SITUATION. WILL CONTINUE TO MONITOR.
--- NOTE | 2020-03-26 15:38 | NUR ---
DR. EDUARDO CALLED TO PROVIDE UPDATE ON PT CONDITION AND TO CLARIFY THE CONTINUANCE OF CURRENT ORDER SET. WILL CONTINUE COMFORT CARE AND TREAT CONSERVATIVELY PER DR. EDUARDO. UPDATE PROVIDED TO FAMILY. REASSURANCES AND EMOTIONAL SUPPORT PROVIDED.
--- NOTE | 2020-03-26 16:22 | NUR ---
JEAN PERFORMED W/ PT'S DAUGHTER, SONAL AND GRANDDAUGHTER KEVAN. PT WAS ABLE TO OPEN EYES AND MUMBLE INCOHERENTLY WHEN FAMILY MEMBERS SPOKE TO HIM. UPDATE PROVIDED WITH REASSURANCES AND EMOTIONAL SUPPORT PROVIDED. QUESTIONS ANSWERED.
--- NOTE | 2020-03-26 17:17 | NUR ---
PT PALLIATIVELY EXTUBATED TODAY AND PLACED ON O2 VIA NC. PT'S DAUGHTER, SONAL AND GRANDDAUGHTER, KEVAN WERE ABLE TO SEE THE PT PRIOR TO EXTUBATION AND VIA FACETIME AFTERWARDS. PT IS LETHARGIC, OPENING EYES TO VOICE AND MUMBLING INCOHERENTLY. CONTINUE PALLIATIVE PLAN OF CARE.
--- NOTE | 2020-03-26 17:53 | NUR ---
CALLED PT'S GRANDDAUGHTER, KEVAN, TO UPDATE ON PT STATUS. PT WILL BE MOVING TO ROOM 355 SOON. UPDATE GIVEN. REASSURANCES AND EMOTIONAL SUPPORT ONGOING.
--- NOTE | 2020-03-26 18:42 | NUR ---
REPORT CALLED TO CYNDEE LOYOLA ON .
--- NOTE | 2020-03-26 20:31 | NUR ---
pt tx to 3 west room 355 with RN. REMAINS A DNR ON COMFORT CARE.
[2020-03-27 05:42] LABS: HEMATOCRIT 31.4 % (42.0-52.0); HEMOGLOBIN 9.7 gm/dL (14.0-18.0); MCH 23.3 pg (26.0-34.0); MCV 75.2 fL (80.0-100.0); PLATELET COUNT 175 thou/uL (150-400); RBC 4.18 mil/uL (4.50-6.00); RDW 16.9 % (10.5-14.5); WBC 33.7 thou/uL (4.0-11.0)
--- NOTE | 2020-03-27 05:47 | NUR ---
PT ARRIVED FROM ICU. LETHARGIC, DNR AND ON COMFORT CARE. FOLLEY INTACT AND PATENT. PT REPOSITIONED FOR COMFORT. ISOLATION MAINTAINED. PT ON 4L OF O2. FALL PREC IN PLACE AND COMFORT MEASURES PROVIDED. WILL CONT TO MONITOR.
[2020-03-27 06:09] LABS: ALBUMIN 1.5 g/dL (3.4-5.0); CALCIUM 8.3 mg/dL (8.5-10.1); POTASSIUM 4.5 mmol/L (3.5-5.1); TOTAL BILIRUBIN 0.4 mg/dL (0.2-1.0); TOTAL PROTEIN 5.8 g/dL (6.4-8.2)
[2020-03-27 07:14] LABS: ABSOLUTE NEUTROPHILS 33.7 thou/uL (1.4-8.2); ANISOCYTOSIS 1+; PLATELET ESTIMATE NORMAL
[2020-03-27 07:15] LABS: POIKILOCYTOSIS 1+
[2020-03-27 07:48] VITALS: BP 134/64
--- NOTE | 2020-03-27 14:33 | NUR ---
SW reviewed chart and spoke with nursing. Pt was transferred to from ICU. Pt remains in Enhanced Isolation due to COVID-19. Pt is on comfort care measures at this time. SW is following to assist as needed.
--- NOTE | 2020-03-27 17:00 | NUR ---
RN ASSUMED PT'S CARE AT 0700AM, PT HAS STARTS CONFORT CARE AT 03/26/20, PT OPENS HIS EYES BY VOICE , BUT PT IS UNVERBLE, PT IS ON O2 5L /MIN/NC FOR CONFORT, PT HAS IV MORPHIN FOR DYSPNEA, PT'S ORAL CARE HAS DONE, PT SHOWS COMFORTABLE .
[2020-03-27 19:44] VITALS: BP 141/64
--- NOTE | 2020-03-27 20:26 | NUR ---
PT RESTING IN BED. PTS EYES ROLLED UP TOWARDS CEILING. RESPIRATIONS CHEYENE TREJO. BUE EDEMA. GUTTERAL SOUNDS. PRN MORPHINE PROVIDED. PT REPOSITIONED FOR COMFORT. DEXTER TEJEDA DD.
[2020-03-28 04:31] VITALS: BP 125/46
[2020-03-28 07:28] VITALS: BP 125/52
--- NOTE | 2020-03-28 14:28 | NUR ---
Assumed care at shift change. Pt lethargic this morning with flat affect. Pt moans with movement but no other response. Given Morphine per comfort care orders. Pt at 1235 today. Daughter, Tsering, notified. All belongings sent to home with patient . Family informed.
--- NOTE | 2020-03-28 14:37 | NUR ---
SW reviewed chart and spoke with nursing. Pt in Enhanced Isolation due to COVID-19. Pt has been on comfort care measures since 03/26. Pt earlier this afternoon. Family notified. No additional SW needs identified at this time, but is available to assist should needs arise.
== END 2020-03-28 12:35 | DRG 870 ==
LOC: ER 23:22 → 3W 03-12 01:14 → EROBS 03-12 01:14 → 3W 03-12 15:27 → ICU 03-20 23:24 → 3W 03-26 21:29
PROVIDERS: Emergency Medicine; Internal Medicine Nephrology; Internal Medicine Pulmonary Disease; Nurse Practitioner Family; Pediatrics; Specialist; ADMIT Family Medicine; ATTEND Family Medicine
PROC: XW033E5 Introduction of Remdesivir Anti-infective into Peripheral Vein, Percutaneous Approach, New Technology Group 5 (ICD-10-PCS; principal; 2020-03-13)
PROC: XW13325 Transfusion of Convalescent Plasma (Nonautologous) into Peripheral Vein, Percutaneous Approach, New Technology Group 5 (ICD-10-PCS; principal; 2020-03-13)
PROC: 5A09457 Assistance with Respiratory Ventilation, 24-96 Consecutive Hours, Continuous Positive Airway Pressure (ICD-10-PCS; 2020-03-14)
PROC: 5A09357 Assistance with Respiratory Ventilation, Less than 24 Consecutive Hours, Continuous Positive Airway Pressure (ICD-10-PCS; 2020-03-16)
PROC: 5A09357 Assistance with Respiratory Ventilation, Less than 24 Consecutive Hours, Continuous Positive Airway Pressure (ICD-10-PCS; 2020-03-17)
PROC: 5A09357 Assistance with Respiratory Ventilation, Less than 24 Consecutive Hours, Continuous Positive Airway Pressure (ICD-10-PCS; 2020-03-18)
PROC: 5A09357 Assistance with Respiratory Ventilation, Less than 24 Consecutive Hours, Continuous Positive Airway Pressure (ICD-10-PCS; 2020-03-19)
PROC: 5A09457 Assistance with Respiratory Ventilation, 24-96 Consecutive Hours, Continuous Positive Airway Pressure (ICD-10-PCS; 2020-03-20)
PROC: 02H633Z Insertion of Infusion Device into Right Atrium, Percutaneous Approach (ICD-10-PCS; 2020-03-21)
PROC: B548ZZA Ultrasonography of Superior Vena Cava, Guidance (ICD-10-PCS; 2020-03-21)
PROC: 0BH17EZ Insertion of Endotracheal Airway into Trachea, Via Natural or Artificial Opening (ICD-10-PCS; 2020-03-21)
PROC: 5A1955Z Respiratory Ventilation, Greater than 96 Consecutive Hours (ICD-10-PCS; 2020-03-21)
DX: A41.89 Other specified sepsis (principal); U07.1 COVID-19; J12.9 Viral pneumonia, unspecified; J96.01 Acute respiratory failure with hypoxia; E87.0 Hyperosmolality and hypernatremia; G93.40 Encephalopathy, unspecified; N17.9 Acute kidney failure, unspecified; E11.22 Type 2 diabetes mellitus with diabetic chronic kidney disease; E78.5 Hyperlipidemia, unspecified; J44.9 Chronic obstructive pulmonary disease, unspecified; R53.81 Other malaise; D64.9 Anemia, unspecified; I12.9 Hypertensive chronic kidney disease with stage 1 through stage 4 chronic kidney disease, or unspecified chronic kidney disease; D72.829 Elevated white blood cell count, unspecified; T38.0X5A Adverse effect of glucocorticoids and synthetic analogues, initial encounter; B95.7 Other staphylococcus as the cause of diseases classified elsewhere; Z51.5 Encounter for palliative care; E87.6 Hypokalemia; F03.90 Unspecified dementia, unspecified severity, without behavioral disturbance, psychotic disturbance, mood disturbance, and anxiety; N18.32 Chronic kidney disease, stage 3b; Z66 Do not resuscitate; Z23 Encounter for immunization; Z98.49 Cataract extraction status, unspecified eye; Z89.022 Acquired absence of left finger(s); Z79.82 Long term (current) use of aspirin; Z79.899 Other long term (current) drug therapy; Y92.89 Other specified places as the place of occurrence of the external cause
CPT/HCPCS: 10078; 10779; 10879